=== PATIENT | male | born 1940 | race Caucasian/White ===

== ENCOUNTER 2021-07-10 03:24 | Inpatient (IN) | payer MEDICARE, BC ==
--- NOTE | 2021-07-10 04:15 | EDM.PDOC ---
<OfficerJohn - Last Filed: 07/10/21 09:19> ED HPI GENERAL MEDICAL PROBLEM - General Chief Complaint: Back Pain or Injury Stated Complaint: FELL Time Seen by Provider: 07/10/21 03:55 - Related Data Allergies Allergy/AdvReac Type Severity Reaction Status Date / Time No Known Allergies Allergy Verified 07/10/21 03:29 Home Meds: Home Meds Apixaban [Eliquis] 5 mg PO BID 07/10/21 [History] Colchicine 0.6 mg PO ASDIRECTED PRN 07/10/21 [History] Cyclobenzaprine [Flexeril] 10 mg PO ASDIRECTED PRN 07/10/21 [History] DULoxetine [Cymbalta] 60 mg PO DAILY 07/10/21 [History] Docusate Sodium 100 mg PO DAILY 07/10/21 [History] Famotidine 20 mg PO BID 07/10/21 [History] Gabapentin [Neurontin] 400 mg PO BID 07/10/21 [History] Isosorbide Dinitrate [Isordil] 20 mg PO TID 07/10/21 [History] Nitroglycerin [Nitrostat] 0.4 mg SL ASDIRECTED PRN 07/10/21 [History] allopurinoL [Zyloprim] 100 mg PO DAILY 07/10/21 [History] atorvaSTATin [Lipitor] 80 mg PO BEDTIME 07/10/21 [History] carvediloL [Carvedilol] 25 mg PO BID 07/10/21 [History] hydrALAZINE [Apresoline] 10 mg PO TID 07/10/21 [History] lisinopriL [Lisinopril] 20 mg PO DAILY 07/10/21 [History] Departure - Departure Time of Disposition: 09:20 Disposition: Admitted As Inpatient 68 Clinical Impression: Multiple rib fractures Qualifiers: Encounter type: initial encounter Fracture type: closed Laterality: right Qu alified Code(s): S22.41XA - Multiple fractures of ribs, right side, initial encounter for closed fracture - Discharge Information - Assessment/Plan Plan: Assessment Acuity = acute Site and laterality = multiple rib fractures nondisplaced Etiology = fall Manifestations = none Location of injury = Home Lab values = CT scan describes a fracture as above Plan "Discussed case with hospitalist on-call at 830 kindly agreed to come evaluate patient emergency department for admission This note was dictated using [employer] voice recognition software please call with any questions on syntax or grammar. <Malcolm Mendoza - Last Filed: 07/10/21 16:53> ED HPI GENERAL MEDICAL PROBLEM - General Source of Information: Reports: Patient, EMS, Family History Limitations: Reports: No Limitations - History of Present Illness INITIAL COMMENTS - FREE TEXT/NARRATIVE: 81-year-old male with chronic back pain, was up walking when he fell hard onto his back. It knocked his breath out and now he has significant mid back pain. He also tasted "blood in his mouth" when it happened. He was unable to get up slowly the ambulance was called, he still has significant pain in his thoracic spine. He was mildly hypoxic but does not complain of shortness of breath. No head injury or neck pain. He is on anticoagulation due to atrial fibrillation, and also has chronic kidney disease. He looks pale. His had some oxycodone from a dental procedure, he took 2 of those. Onset: Sudden Duration: Hour(s): (Within the last 2 hours) Location: Reports: Back (His most significant pain is mid back) Quality: Reports: Sharp, Stabbing Worsens with: Reports: Movement Associated Symptoms: Reports: Malaise, Other (Some pleuritic pain with breathing). Denies: Chest Pain, Fever/Chills, Shortness of Breath bilateral ribs Pain Score (Numeric/FACES): 3 middle lower back Pain Score (Numeric/FACES): 3 Past Medical History HEENT History: Reports: Cataract, Impaired Vision, Other (See Below) Other HEENT History: reading glasses Cardiovascular History: Reports: Afib, Bypass, Heart Failure, High Cholesterol, Hypertension Genitourinary History: Reports: Renal Disease, Other (See Below) Other Genitourinary History: prostate CA. Stage 4 renal disease Musculoskeletal History: Reports: Arthritis, Back Pain, Chronic Endocrine/Metabolic History: Reports: Diabetes, Type II, Obesity/BMI 30+ Hematologic History: Reports: Anticoagulation Therapy Oncologic (Cancer) History: Reports: Prostate - Infectious Disease History Infectious Disease History: Reports: Mumps - Past Surgical History HEENT Surgical History: Reports: Cataract Surgery Cardiovascular Surgical History: Reports: Coronary Artery Bypass Male Surgical History: Reports: Prostatectomy Musculoskeletal Surgical History: Reports: Arthroscopic Procedure Social & Family History - Tobacco Use Tobacco Use Status *Q: Never Tobacco User - Caffeine Use Caffeine Use: Reports: Coffee, Soda - Recreational Drug Use Recreational Drug Use: No ED ROS GENERAL - Review of Systems Review Of Systems: See Below Constitutional: Denies: Fever, Chills HEENT: Reports: Other (Somewhat hard of hearing). Denies: Vision Change Respiratory: Reports: Pleuritic Chest Pain (Posterior mid back, pain with breathing). Denies: Shortness of Breath Cardiovascular: Reports: Other (History of atrial fibrillation). Denies: Chest Pain GI/Abdominal: Denies: Abdominal Pain, Nausea, Vomiting : Reports: No Symptoms Skin: Reports: Pallor. Denies: Bruising Neurological: Denies: Headache Psychiatric: Reports: No Symptoms ED EXAM,LOWER BACK PAIN/INJURY - Physical Exam Exam: See Below Exam Limited By: No Limitations General Appearance: Alert, Mild Distress (Looks fairly uncomfortable even lying still) Eye Exam: Bilateral Eye: EOMI, PERRL Throat/Mouth: Normal Inspection Head: Atraumatic Neck: Supple, Non-Tender Respiratory/Chest: No Respiratory Distress, Lungs Clear Cardiovascular: Regular Rate, Rhythm, Extra Beats GI/Abdominal: Soft, Non-Tender Back Exam: Vertebral Tenderness (Marked vertebral tenderness in his mid thoracic spine, unable to sit up without significant pain) Extremities: Other (Symmetric trace of pitting edema in the ankles bilaterally) Neurological: Alert, No Motor/Sensory Deficits, Oriented x 3 Psychiatric: Flat Affect Skin Exam: Warm, Dry, Pallor (Looks somewhat pale) Course - Vital Signs Last Recorded V/S: Last Vital Signs Temp 97.9 F 07/10/21 14:36 Pulse 69 07/10/21 14:36 Resp 16 07/10/21 14:36 BP 140/61 07/10/21 15:42 Pulse Ox 97 07/10/21 14:36 - Orders/Labs/Meds Orders: Active Orders 24 hr Category Date Time Status Patient Status [ADT] Routine ADT 07/10/21 09:37 Active Communication Order [RC] PRN Care 07/10/21 09:37 Active Communication Order [RC] PRN Care 07/10/21 09:37 Active Diabetes Education [RC] Click to Edit Care 07/10/21 09:37 Active Intake and Output [RC] QSHIFT Care 07/10/21 09:37 Active Notify Provider Vital Signs [RC] ASDIRECTED Care 07/10/21 09:37 Active Notify Provider [RC] PRN Care 07/10/21 09:37 Active Oxygen Therapy [RC] PRN Care 07/10/21 09:37 Active Up With Assistance [RC] ASDIRECTED Care 07/10/21 09:37 Active VTE/DVT Education [RC] Per Unit Routine Care 07/10/21 09:37 Active Vital Signs [RC] Q4H Care 07/10/21 09:37 Active OT Evaluation and Treatment [CONS] Routine Cons 07/10/21 09:37 Active PT Evaluation and Treatment [CONS] Routine Cons 07/10/21 09:37 Active Consistent Carbohydrate Diet [DIET] Diet 07/10/21 Lunch Active GLUCOSE POC LAB TO COLLECT JPM [POC] QIDACANDBED Lab 07/10/21 21:00 Ordered GLUCOSE POC LAB TO COLLECT JPM [POC] QIDACANDBED Lab 07/11/21 07:30 Ordered GLUCOSE POC LAB TO COLLECT JPM [POC] QIDACANDBED Lab 07/11/21 11:30 Ordered GLUCOSE POC LAB TO COLLECT JPM [POC] QIDACANDBED Lab 07/11/21 16:30 Ordered GLUCOSE POC LAB TO COLLECT JPM [POC] QIDACANDBED Lab 07/11/21 21:00 Ordered GLUCOSE POC LAB TO COLLECT JPM [POC] QIDACANDBED Lab 07/12/21 07:30 Ordered GLUCOSE POC LAB TO COLLECT JPM [POC] QIDACANDBED Lab 07/12/21 11:30 Ordered GLUCOSE POC LAB TO COLLECT JPM [POC] QIDACANDBED Lab 07/12/21 16:30 Ordered GLUCOSE POC LAB TO COLLECT JPM [POC] QIDACANDBED Lab 07/12/21 21:00 Ordered GLUCOSE POC LAB TO COLLECT JPM [POC] QIDACANDBED Lab 07/13/21 07:30 Ordered GLUCOSE POC LAB TO COLLECT JPM [POC] QIDACANDBED Lab 07/13/21 11:30 Ordered GLUCOSE POC LAB TO COLLECT JPM [POC] QIDACANDBED Lab 07/13/21 16:30 Ordered GLUCOSE POC LAB TO COLLECT JPM [POC] QIDACANDBED Lab 07/13/21 21:00 Ordered GLUCOSE POC LAB TO COLLECT JPM [POC] QIDACANDBED Lab 07/14/21 07:30 Ordered GLUCOSE POC LAB TO COLLECT JPM [POC] QIDACANDBED Lab 07/14/21 11:30 Ordered GLUCOSE POC LAB TO COLLECT JPM [POC] QIDACANDBED Lab 07/14/21 16:30 Ordered GLUCOSE POC LAB TO COLLECT JPM [POC] QIDACANDBED Lab 07/14/21 21:00 Ordered GLUCOSE POC LAB TO COLLECT JPM [POC] QIDACANDBED Lab 07/15/21 07:30 Ordered GLUCOSE POC LAB TO COLLECT JPM [POC] QIDACANDBED Lab 07/15/21 11:30 Ordered GLUCOSE POC LAB TO COLLECT JPM [POC] QIDACANDBED Lab 07/15/21 16:30 Ordered Acetaminophen [Tylenol Extra Strength] Med 07/10/21 14:00 Active 1,000 mg PO TID Docusate Sodium/Sennosides [Senna Plus] Med 07/10/21 09:37 Active 1 tab PO BID PRN Insulin Lispro [HumaLOG] Med 07/10/21 11:00 Active See Protocol SUBCUT QIDACANDBED LORazepam [Ativan] Med 07/10/21 09:37 Active 0.5 mg IVPUSH Q4H PRN Magnesium Hydroxide [Milk of Magnesia] Med 07/10/21 09:37 Active 30 ml PO Q12H PRN Melatonin Med 07/10/21 09:37 Active 9 mg PO BEDTIME PRN Ondansetron [Zofran ODT] Med 07/10/21 09:37 Active 4 mg PO Q6H PRN Ondansetron [Zofran] Med 07/10/21 09:37 Active 4 mg IV Q6H PRN oxyCODONE Med 07/10/21 09:37 Active 5 - 10 mg PO Q4H PRN Resuscitation Status Routine Resus Stat 07/10/21 09:31 Ordered Medication Orders Acetaminophen (Acetaminophen 500 Mg Tab) 1,000 mg PO TID GUNNAR Last Admin: 07/10/21 13:35 Dose: 1,000 mg Documented by: DEVI Allopurinol (Allopurinol 100 Mg Tab) 100 mg PO DAILY GUNNAR Apixaban (Apixaban 5 Mg Tab) 5 mg PO BID GUNNAR Atorvastatin Calcium (Atorvastatin 20 Mg Tab) 80 mg PO BEDTIME GUNNAR Carvedilol (Carvedilol 12.5 Mg Tab) 25 mg PO BID [facility] Docusate Sodium (Docusate Sodium 100 Mg Cap) 100 mg PO DAILY [facility] Duloxetine HCl (Duloxetine 30 Mg Cap) 60 mg PO DAILY [facility] Famotidine (Famotidine 20 Mg Tab) 20 mg PO BEDTIME [facility] Gabapentin (Gabapentin 400 Mg Cap) 400 mg PO BID [facility] Hydralazine HCl (Hydralazine 10 Mg Tab) 10 mg PO TID [facility] Last Admin: 07/10/21 15:42 Dose: 10 mg Documented by: JOSE Insulin Human Lispro (Insulin Lispro 100 Unit/Ml 3 Ml Kwikpen) 0 unit SUBCUT QIDACANDBED [facility]; Protocol Last Admin: 07/10/21 11:39 Dose: Not Given Documented by: DEVI Isosorbide Dinitrate (Isosorbide Dinitrate 10 Mg Tab) 20 mg PO TIDAC [facility] Last Admin: 07/10/21 15:42 Dose: 20 mg Documented by: JOSE Lisinopril (Lisinopril 20 Mg Tab) 20 mg PO DAILY [facility] Lorazepam (Lorazepam 2 Mg/Ml Sdv) 0.5 mg IVPUSH Q4H PRN PRN Reason: Nausea/Vomiting Magnesium Hydroxide (Magnesium Hydroxide 400 Mg/5 Ml Susp 30 Ml Cup) 30 ml PO Q12H PRN PRN Reason: Constipation Melatonin (Melatonin 3 Mg Tab) 9 mg PO BEDTIME PRN PRN Reason: Sleep Ondansetron HCl (Ondansetron 4 Mg/2 Ml Sdv) 4 mg IV Q6H PRN PRN Reason: Nausea/Vomiting Ondansetron HCl (Ondansetron 4 Mg Tab.Dis) 4 mg PO Q6H PRN PRN Reason: Nausea able to take PO Oxycodone HCl (Oxycodone 5 Mg Tab) 5 - 10 mg PO Q4H PRN PRN Reason: Pain Last Admin: 07/10/21 13:35 Dose: 5 mg Documented by: DEVI Senna/Docusate Sodium (Docusate Sodium/Sennosides 50-8.6 Mg Tab) 1 tab PO BID PRN PRN Reason: Constipation Labs: Laboratory Tests 07/10/21 07/10/21 07/10/21 Range/Units 04:27 04:27 07:14 WBC 9.0 (4.5-11.0) K/uL RBC 2.95 L (4.30-5.90) M/uL Hgb 9.0 L (12.0-15.0) g/dL Hct 28.6 L (40.0-54.0) % MCV 97 (80-98) fL MCH 31 (27-31) pg MCHC 32 (32-36) % Plt Count 79 L (150-400) K/uL Neut % (Auto) 87.3 H (36-66) % Lymph % (Auto) 7.5 L (24-44) % Latimer % (Auto) 4.0 (2-6) % Eos % (Auto) 1.1 L (2-4) % Baso % (Auto) 0.1 (0-1) % Sodium 143 (140-148) mmol/L Potassium 5.1 (3.6-5.2) mmol/L Chloride 109 H (100-108) mmol/L Carbon Dioxide 23 (21-32) mmol/L Anion Gap 16.1 H (5.0-14.0) mmol/L BUN 81 H* (7-18) mg/dL Creatinine 3.8 H* (0.8-1.3) mg/dL Est Cr Clr Drug Dosing 14.22 mL/min Estimated GFR (MDRD) 15 L (>60) Glucose 145 H (74-106) mg/dL Calcium 8.7 (8.5-10.1) mg/dL Total Bilirubin 0.5 (0.2-1.0) mg/dL AST 16 (15-37) U/L ALT 23 (12-78) U/L Alkaline Phosphatase 50 (46-116) U/L Total Protein 6.0 L (6.4-8.2) g/dL Albumin 3.3 L (3.4-5.0) g/dL Globulin 2.7 (2.3-3.5) g/dL Albumin/Globulin Ratio 1.2 (1.2-2.2) Lipase 171 (73-393) U/L Meds: Medications Generic Name Dose Route Start Last Admin Trade Name Freq PRN Reason Stop Dose Admin Acetaminophen 1,000 mg 07/10/21 14:00 07/10/21 13:35 Acetaminophen 500 Mg Tab PO 1,000 mg TID GUNNAR Administration Allopurinol 100 mg 07/11/21 09:00 Allopurinol 100 Mg Tab PO DAILY [facility] Apixaban 5 mg 07/10/21 21:00 Apixaban 5 Mg Tab PO BID [facility] Atorvastatin Calcium 80 mg 07/10/21 21:00 Atorvastatin 20 Mg Tab PO BEDTIME [facility] Carvedilol 25 mg 07/10/21 21:00 Carvedilol 12.5 Mg Tab PO BID [facility] Docusate Sodium 100 mg 07/11/21 09:00 Docusate Sodium 100 Mg Cap PO DAILY [facility] Duloxetine HCl 60 mg 07/11/21 09:00 Duloxetine 30 Mg Cap PO DAILY [facility] Famotidine 20 mg 07/10/21 21:00 Famotidine 20 Mg Tab PO BEDTIME [facility] Gabapentin 400 mg 07/10/21 21:00 Gabapentin 400 Mg Cap PO BID [facility] Hydralazine HCl 10 mg 07/10/21 14:00 07/10/21 15:42 Hydralazine 10 Mg Tab PO 10 mg TID [facility] Administration Insulin Human Lispro 0 unit 07/10/21 11:00 07/10/21 11:39 Insulin Lispro 100 Unit/Ml 3 Ml Kwikpen SUBCUT Not Given QIDACANDBED [facility] Protocol Isosorbide Dinitrate 20 mg 07/10/21 16:00 07/10/21 15:42 Isosorbide Dinitrate 10 Mg Tab PO 20 mg TIDAC [facility] Administration Lisinopril 20 mg 07/11/21 09:00 Lisinopril 20 Mg Tab PO DAILY [facility] Lorazepam 0.5 mg 07/10/21 09:37 Lorazepam 2 Mg/Ml Sdv IVPUSH Q4H PRN Nausea/Vomiting Magnesium Hydroxide 30 ml 07/10/21 09:37 Magnesium Hydroxide 400 Mg/5 Ml Susp 30 Ml Cup PO Q12H PRN Constipation Melatonin 9 mg 07/10/21 09:37 Melatonin 3 Mg Tab PO BEDTIME PRN Sleep Ondansetron HCl 4 mg 07/10/21 09:37 Ondansetron 4 Mg/2 Ml Sdv IV Q6H PRN Nausea/Vomiting Ondansetron HCl 4 mg 07/10/21 09:37 Ondansetron 4 Mg Tab.Dis PO Q6H PRN Nausea able to take PO Oxycodone HCl 5 - 10 mg 07/10/21 09:37 07/10/21 13:35 Oxycodone 5 Mg Tab PO 5 mg Q4H PRN Administration Pain Senna/Docusate Sodium 1 tab 07/10/21 09:37 Docusate Sodium/Sennosides 50-8.6 Mg Tab PO BID PRN Constipation Discontinued Medications Generic Name Dose Route Start Last Admin Trade Name Freq PRN Reason Stop Dose Admin Hydromorphone HCl 1 mg 07/10/21 07:25 07/10/21 10:49 Hydromorphone 1 Mg/Ml Syringe IM 07/10/21 07:26 Not Given ONETIME ONE Hydromorphone HCl 0.5 mg 07/10/21 07:29 07/10/21 07:40 Hydromorphone 1 Mg/Ml Syringe IM 07/10/21 07:30 0.5 mg ONETIME ONE Administration - Re-Assessments/Exams Free Text/Narrative Re-Assessment/Exam: 07/10/21 04:15 CBC and CMP were obtained, patient will be sent to CT for chest abdomen pelvis CT scan without contrast. Suspect this patient has suffered compression fractures and possibly more serious injuries. 07/10/21 07:03 Patient remained fairly comfortable while lying still, CT report is below Preliminary Report: PRELIMINARY IMPRESSION : 1. Tiny bilateral pleural effusions and bibasilar atelectasis. No pneumothorax. Mild emphysema. 2. Acute nondisplaced fractures of the right posterior 4th-9th ribs. Old left posterior rib fractures. Chronic appearing mild anterior wedging of T11. 3. Infrarenal abdominal aortic aneurysm measuring 4.5 cm in AP dimension. No evidence of rupture. 4. No evidence of bowel obstruction. Colonic diverticulosis. No intraperitoneal free air or fluid. Negative appendix. 5. Mild nonspecific fat stranding in the central mesentery and adjacent to the pancreatic head. Correlate with lipase levels to exclude pancreatitis. Dictated by Renate Islas MD @ 07/10/2021 6:46:34 AM He would like to try to go home and cover pain with oral pain medication. He will attempt to go to the bathroom and if he is successful we may be able to get him home. 07/10/21 07:18 Patient attempted to go to the bathroom with nursing help and was unable to tolerate this without significant help, and obviously needs to be admitted for pain control. A lipase was also added at the request of the CT results. Hospitalist service was informed. Sepsis Event Note (ED) - Evaluation Sepsis Screening Result: No Definite Risk - Focused Exam Vital Signs: Vital Signs Pulse Resp BP Pulse Ox 07/10/21 07:20 70 20 155/65 H 93 L
--- NOTE | 2021-07-10 06:47 | CRLCT ---
For Patients: As a result of the 21st Century Cures Act, medical imaging exams and procedure reports are released immediately into your electronic medical record. You may view this report before your referring provider. If you have questions, please contact your health care provider. Indication: Fell, mid back pain Technique: Volumetric multidetector CT images of the chest, abdomen, and pelvis were obtained without the administration of intravenous contrast. Comparison: None available. FINDINGS: CHEST The thoracic inlet is unremarkable. The thyroid gland is within normal limits. The thoracic aorta is non aneurysmal with moderate scattered atherosclerotic calcifications. There is median sternotomy wires. Postoperative changes of the chest status post coronary artery bypass grafting are appreciated. There are enlarged, reactive appearing mediastinal and hilar lymph nodes. There is no axillary adenopathy. There is bibasilar atelectasis and parenchymal scarring without evidence of definite pneumothorax or dense consolidation. Somewhat nodular thickening of the right major fissure is appreciated. There is additional somewhat ground-glass nodule versus air trapping in the anterior left upper lobe. There is mild centrilobular emphysematous changes predominantly of the upper lobes. There are multiple displaced fractures of the right 4th, 5th, 6th, 7th, 8th, 9th ribs. There are old left-sided rib fractures with additional nondisplaced fractures of the posterior 5th, 6th, 7th ribs. The thoracic vertebral body heights are grossly maintained with minimal endplate Schmorl`s defects and diffuse flowing anterior osteophytosis. There is no significant spondylolisthesis or definite displaced fracture. Somewhat heterogeneous marrow attenuation is appreciated with suggestion of likely hemangioma within the T4 and T8 levels. ABDOMEN AND PELVIS The liver is normal in attenuation and size. The portal vein is patent. The spleen is normal in attenuation and size. The gallbladder is unremarkable without radiopaque calculus. There is no intrahepatic or common ductal dilatation. The stomach and duodenum are grossly unremarkable. There is mild to moderate pancreatic atrophy with minimal nonspecific peripancreatic change. Cystic changes of the kidneys are appreciated. The adrenal glands are unremarkable. There is a moderate diffuse amount of intracolonic stool. There is marked distal colonic diverticulosis. No obvious colonic inflammatory changes are appreciated. The appendix is unremarkable without significant inflammatory change. The abdominal aorta is mildly aneurysmal with moderate atherosclerotic plaque measuring up to 4.5 x 4.2 centimeters.. Postoperative changes of the central pelvis status post prostatectomy are again seen. Vascular conduit material is appreciated in the inguinal soft tissues commensurate with a fem-fem bypass. There is nonspecific central mesenteric stranding which can be seen in the setting of mesenteric adenitis. Otherwise there is no evidence of pathologic lymph node in the retroperitoneum or pelvic sidewalls. Postoperative changes of the anterior abdominal wall are appreciated with a small fat containing umbilical hernia. There is no free air or free fluid. Degenerative changes of the bilateral hips are appreciated. Additional degeneration of the sacroiliac joints is seen. The proximal femora are well seated in the acetabula. The lumbar vertebral body heights are grossly maintained with minimal endplate Schmorl`s defects. There is no evidence of displaced fracture or dislocation. There is moderate facet arthrosis. Impression: 1. Demonstration of displaced fractures of the right 4th through 9th ribs as well as nondisplaced acute fractures of the posterior left 5th through 7th ribs. Additional old left-sided rib fractures are appreciated. 2. Demonstration of infrarenal abdominal aortic aneurysm measuring 4.5 centimeters in greatest dimension. Postoperative changes of the proximal femoral arteries status post fem-fem bypass. 3. Minimal basilar pleural effusions with adjacent compressive atelectasis and/or somewhat thickened appearance of the right greater than left major fissures. Mild to moderate emphysematous changes of the upper lobes. Demonstration of a somewhat ground-glass nodule in the anterior left lung apex on series 2, image 44 measuring 1.6 centimeters. Consider further evaluation with follow-up exam in 3-6 months time for reassessment if there remains persistent concern. 4. Mild nonspecific central mesenteric soft tissue stranding which can be seen in the setting of mesenteric adenitis. There is mild adjacent inflammatory change adjacent to the pancreas which can be seen in the setting of pancreatitis. Please note that all CT scans at this facility use dose modulation, iterative reconstruction, and/or weight-based dosing when appropriate to reduce radiation dose to as low as reasonably achievable. Dictated by Collins Sidhu MD @ 07/10/2021 1:03:46 PM (Electronically Signed)
[2021-07-10] MEDS ORDERED: HYDROmorphone 1 MG/ML Syringe IM ONE ×2 (07:25→07:29)
--- NOTE | 2021-07-10 09:35 | PCM.HP.2 ---
H&P History of Present Illness - General Date of Service: 07/10/21 Admit Problem/Dx: Admission Diagnosis/Problem Admission Diagnosis/Problem Fracture of rib of right side Source of Information: Patient, Family, Provider - History of Present Illness Initial Comments - Free Text/Narative: CC: my ribs were hurting pretty bad HPI: Malcolm presents to the emergency room today with right-sided chest pain. He reports he was going to the bathroom in the middle of the night and tripped over a rug. He fell down striking the right side of his chest. He had immediate sharp and severe pain of the right chest. His spouse did have some pain pills from a previous surgery and he tried a couple of these but did not have significant relief. Moving around and especially trying to sit up or stand up increases the pain. Laying still does help. He has also received some intramuscular pain medications in the emergency room with improvement. He had been feeling well prior to the fall and has not noticed anything out of the ordinary. His bowels have been moving regularly. He had not had shortness of b reath prior to the episode. Work-up in the emergency room revealed fractures of the posterior right ribs from 4 through 9. He has hypoxic and requiring supplemental oxygen because of the fractures as well as resulting pain. He has a great deal of difficulty changing positions in bed and getting to a standing position and is not safe for outpatient management at this time. He will be admitted for management of his rib fractures resulting in hypoxic respiratory failure. bilateral ribs Pain Score (Numeric/FACES): 3 middle lower back Pain Score (Numeric/FACES): 3 - Related Data Allergies/Adverse Reactions: Allergies Allergy/AdvReac Type Severity Reaction Status Date / Time No Known Allergies Allergy Verified 07/10/21 03:29 Home Medications: Home Meds Apixaban [Eliquis] 5 mg PO BID 07/10/21 [History] Colchicine 0.6 mg PO ASDIRECTED PRN 07/10/21 [History] Cyclobenzaprine [Flexeril] 10 mg PO ASDIRECTED PRN 07/10/21 [History] DULoxetine [Cymbalta] 60 mg PO DAILY 07/10/21 [History] Docusate Sodium 100 mg PO DAILY 07/10/21 [History] Famotidine 20 mg PO BID 07/10/21 [History] Gabapentin [Neurontin] 400 mg PO BID 07/10/21 [History] Isosorbide Dinitrate [Isordil] 20 mg PO TID 07/10/21 [History] Nitroglycerin [Nitrostat] 0.4 mg SL ASDIRECTED PRN 07/10/21 [History] allopurinoL [Zyloprim] 100 mg PO DAILY 07/10/21 [History] atorvaSTATin [Lipitor] 80 mg PO BEDTIME 07/10/21 [History] carvediloL [Carvedilol] 25 mg PO BID 07/10/21 [History] hydrALAZINE [Apresoline] 10 mg PO TID 07/10/21 [History] lisinopriL [Lisinopril] 20 mg PO DAILY 07/10/21 [History] Past Medical History HEENT History: Reports: Cataract, Impaired Vision, Other (See Below) Other HEENT History: reading glasses Cardiovascular History: Reports: Afib, Bypass, Heart Failure, High Cholesterol, Hypertension Genitourinary History: Reports: Renal Disease, Other (See Below) Other Genitourinary History: prostate CA. Stage 4 renal disease Musculoskeletal History: Reports: Arthritis, Back Pain, Chronic Endocrine/Metabolic History: Reports: Diabetes, Type II, Obesity/BMI 30+ Hematologic History: Reports: Anticoagulation Therapy Oncologic (Cancer) History: Reports: Prostate - Infectious Disease History Infectious Disease History: Reports: Mumps - Past Surgical History HEENT Surgical History: Reports: Cataract Surgery Cardiovascular Surgical History: Reports: Coronary Artery Bypass Male Surgical History: Reports: Prostatectomy Musculoskeletal Surgical History: Reports: Arthroscopic Procedure Social & Family History - Family History Cardiac: Denies: CAD - Tobacco Use Tobacco Use Status *Q: Never Tobacco User - Caffeine Use Caffeine Use: Reports: Coffee, Soda - Recreational Drug Use Recreational Drug Use: No H&P Review of Systems - Review of Systems: Review Of Systems: See Below Free Text/Narrative: A complete 12 point review of systems was obtained. Pertinent positives and negatives are noted in the history of present illness. All other systems were reviewed and were negative except as noted. Exam - Exam Exam: See Below - Vital Signs Vital Signs: Last Vital Signs Temp 36.4 C 07/10/21 03:34 Pulse 70 07/10/21 07:20 Resp 20 07/10/21 07:20 BP 155/65 H 10/04/21 07:20 Pulse Ox 93 L 07/10/21 07:20 Weight: 108.862 kg - Exam Quality Assessment: Supplemental Oxygen General: Alert, Oriented, Cooperative, Sedated. No: Mild Distress HEENT: Conjunctiva Clear, Mucosa Moist & [place]. No: Scleral Icterus Neck: Supple, Trachea Midline Lungs: Clear to Auscultation, Normal Respiratory Effort, Decreased Breath Sounds (Mild right lung base) Cardiovascular: Regular Rate, Irregular Rhythm. No: Systolic Murmur GI/Abdominal Exam: Normal Bowel Sounds, Soft, Non-Tender, No Distention Extremities: No Pedal Edema. No: Increased Warmth Peripheral Pulses: 2+: Dorsalis Pedis (L), Dorsalis Pedis (R) Skin: Warm, Dry Neuro Extensive - Mental Status: Alert, Oriented x3, Slow Response to Commands (Very sleepy) Neuro Extensive - Motor, Sensory, Reflexes: No: Dysarthria, Abnormal Motor, Tremor Psychiatric: Alert, Normal Affect - Patient Data Lab Results Last 24 hrs: Laboratory Results - last 24 hr 07/10/21 07/10/21 07/10/21 Range/Units 04:27 04:27 07:14 WBC 9.0 (4.5-11.0) K/uL RBC 2.95 L (4.30-5.90) M/uL Hgb 9.0 L (12.0-15.0) g/dL Hct 28.6 L (40.0-54.0) % MCV 97 (80-98) fL MCH 31 (27-31) pg MCHC 32 (32-36) % Plt Count 79 L (150-400) K/uL Neut % (Auto) 87.3 H (36-66) % Lymph % (Auto) 7.5 L (24-44) % [place] % (Auto) 4.0 (2-6) % Eos % (Auto) 1.1 L (2-4) % Baso % (Auto) 0.1 (0-1) % Sodium 143 (140-148) mmol/L Potassium 5.1 (3.6-5.2) mmol/L Chloride 109 H (100-108) mmol/L Carbon Dioxide 23 (21-32) mmol/L Anion Gap 16.1 H (5.0-14.0) mmol/L BUN 81 H* (7-18) mg/dL Creatinine 3.8 H* (0.8-1.3) mg/dL Est Cr Clr Drug Dosing 14.22 mL/min Estimated GFR (MDRD) 15 L (>60) Glucose 145 H (74-106) mg/dL Calcium 8.7 (8.5-10.1) mg/dL Total Bilirubin 0.5 (0.2-1.0) mg/dL AST 16 (15-37) U/L ALT 23 (12-78) U/L Alkaline Phosphatase 50 (46-116) U/L Total Protein 6.0 L (6.4-8.2) g/dL Albumin 3.3 L (3.4-5.0) g/dL Globulin 2.7 (2.3-3.5) g/dL Albumin/Globulin Ratio 1.2 (1.2-2.2) Lipase 171 (73-393) U/L Result Diagrams: 07/10/21 04:27 07/10/21 04:27 Imaging Impressions Last 24 hrs: CT scan of the chest, abdomen and pelvis-these images were personally reviewed- there is evidence for fractures of posterior ribs on the right side from ribs 4 through 9. No pneumothorax or hemothorax. No evidence for pneumonia. Sepsis Event Note - Evaluation Sepsis Screening Result: No Definite Risk - Focused Exam Vital Signs: Vital Signs Temp Pulse Resp BP Pulse Ox 07/10/21 07:20 70 20 155/65 H 93 L 07/10/21 03:34 36.4 C 67 14 151/52 H 99 07/10/21 03:29 36.4 C 67 14 151/52 H 99 *Q Meaningful Use (ADM) - VTE Risk Assess *Q Each Risk Factor Represents 1 Point: Obesity ( BMI > 25 kg/m2), Serious lung disease including pneumonia Total Score 1 Point Risk Factors: 2 Each Risk Factor Represents 2 Points: None Total Score 2 Point Risk Factors: 0 Each Risk Factor Represents 3 Points: Age 75 Years or Greater Total Score 3 Point Risk Factors: 3 Each Risk Factor Represents 5 Points: None Total Score 5 Point Risk Factors: 0 Venous Thromboembolism Risk Factor Score *Q: 5 - Problem List (1) Multiple rib fractures SNOMED Code(s): 2329206 ICD Code: S22.49XA - MULTIPLE FRACTURES OF RIBS, UNSP SIDE, INIT FOR CLOS FX Status: Acute Current Visit: Yes Qualifiers: Encounter type: initial encounter Fracture type: closed Laterality: right Qualified Code(s): S22.41XA - Multiple fractures of ribs, right side, initial encounter for closed fracture (2) Acute respiratory failure with hypoxia SNOMED Code(s): 12137253, 776423009 ICD Code: J96.01 - ACUTE RESPIRATORY FAILURE WITH HYPOXIA Status: Acute Current Visit: Yes (3) CKD (chronic kidney disease), stage IV SNOMED Code(s): 990684531 ICD Code: N18.4 - CHRONIC KIDNEY DISEASE, STAGE 4 (SEVERE) Status: Chronic Current Visit: Yes (4) DM II (diabetes mellitus, type II), controlled SNOMED Code(s): 82159695, 280492840 ICD Code: E11.9 - TYPE 2 DIABETES MELLITUS WITHOUT COMPLICATIONS Status: Chronic Current Visit: Yes Qualifiers: Diabetes mellitus title lawyer insulin use: without title lawyer use Diabetes mellitus complication status: with neurologic complications Diabetes mellitus complication detail: with polyneuropathy Qualified Code(s): E11.42 - Type 2 diabetes mellitus with diabetic polyneuropathy (5) Atrial fibrillation SNOMED Code(s): 63564133 ICD Code: I48.91 - UNSPECIFIED ATRIAL FIBRILLATION Status: Chronic Current Visit: Yes Qualifiers: Atrial fibrillation type: paroxysmal Qualified Code(s): I48.0 - Paroxysmal atrial fibrillation Problem List Initiated/Reviewed/Updated: Yes Orders Last 24hrs: Active Orders 24 hr Category Date Time Status Patient Status Manage Transfer [TRANSFER] Routine ADT 07/10/21 09:30 Ordered Resuscitation Status Routine Resus Stat 07/10/21 09:31 Ordered Assessment/Plan Comment:: ASSESSMENT AND PLAN - Multiple right-sided rib fractures-complicated by acute respiratory failure with hypoxia secondary to pain. No evidence for pneumothorax at this time. He had a great deal of difficulty trying to mobilize. He would benefit from admission for pain control, physical therapy and supplemental oxygen therapy. -Pain control with scheduled acetaminophen and as needed oxycodone -Consider low-dose muscle relaxer -Physical therapy -Supplement oxygen as needed, wean as able Stage IV chronic kidney disease-creatinine stable. Type 2 diabetes mellitus-controlled with diet at this time. He is not currently on any antidiabetic medication. -Low-dose sliding scale insulin Paroxysmal atrial fibrillation-chronically anticoagulated. -Continue rate control and anticoagulation Maintenance issues - -DVT prophylaxis-apixaban -GI prophylaxis-H2 darline -Nutrition-diabetic diet -Byrnes catheter-not indicated CODE STATUS -full code Admission justification -this patient will be admitted for inpatient services and is medically appropriate meeting medical necessity for inpatient admission as outlined in my documentation. I reasonably expect the patient will require inpatient services that span a period time over 2 midnights. I reasonably expect this patient to be discharged or transferred within 96 hours after admission to the [facility]. Disposition -I anticipate discharge home after the hospital stay Primary care physician -Dr. Jewel Brush M.D. - Mortality Measure Prognosis:: Good
[2021-07-10] MEDS ORDERED: Ondansetron 4 MG Tab.DIS PO PRN (09:37)
[2021-07-10] MEDS ORDERED: Magnesium Hydroxide 400 MG/5 ML Susp 30 ML Cup PO PRN (09:37)
[2021-07-10] MEDS ORDERED: Ondansetron 4 MG/2 ML SDV IV PRN (09:37)
[2021-07-10] MEDS ORDERED: LORazepam 2 MG/ML SDV IVPUSH PRN (09:37)
[2021-07-10] MEDS ORDERED: Melatonin 3 MG Tab PO PRN (09:37)
[2021-07-10] MEDS: Insulin Lispro 100 Unit/ML 3 ML KwikPen SUBCUT SCH ×3 (11:39→21:22)
[2021-07-10] MEDS: Acetaminophen 500 MG Tab PO SCH ×2 (13:35→21:25)
[2021-07-10] MEDS: oxyCODONE 5 MG Tab PO PRN ×2 (13:35→19:43)
[2021-07-10] MEDS: Isosorbide Dinitrate 10 MG Tab PO SCH (15:42)
[2021-07-10] MEDS: hydrALAZINE 10 MG Tab PO SCH ×2 (15:42→21:25)
[2021-07-10] MEDS: Famotidine 20 MG Tab PO SCH (21:25)
[2021-07-10] MEDS: atorvaSTATin 20 MG Tab PO SCH (21:25)
[2021-07-10] MEDS: Apixaban 5 MG Tab PO SCH (21:25)
[2021-07-10] MEDS: Gabapentin 400 MG Cap PO SCH (21:25)
[2021-07-10] MEDS: Carvedilol 12.5 MG Tab PO SCH (21:28)
[2021-07-11] MEDS: oxyCODONE 5 MG Tab PO PRN ×3 (07:43→17:29)
[2021-07-11] MEDS: Isosorbide Dinitrate 10 MG Tab PO SCH ×3 (07:44→17:30)
[2021-07-11] MEDS: Acetaminophen 500 MG Tab PO SCH ×3 (08:00→20:19)
[2021-07-11] MEDS: Carvedilol 12.5 MG Tab PO SCH ×2 (08:56→20:20)
[2021-07-11] MEDS: Apixaban 5 MG Tab PO SCH ×2 (08:56→20:20)
[2021-07-11] MEDS: Gabapentin 400 MG Cap PO SCH ×2 (08:56→20:20)
[2021-07-11] MEDS: Allopurinol 100 MG Tab PO SCH (08:56)
[2021-07-11] MEDS: DULoxetine 30 MG Cap PO SCH (08:57)
[2021-07-11] MEDS: hydrALAZINE 10 MG Tab PO SCH ×3 (08:57→20:19)
[2021-07-11] MEDS: Docusate Sodium 100 MG Cap PO SCH (08:57)
[2021-07-11] MEDS: Insulin Lispro 100 Unit/ML 3 ML KwikPen SUBCUT SCH ×4 (08:58→21:23)
[2021-07-11] MEDS ORDERED: Lisinopril 20 MG Tab PO SCH (09:00)
--- NOTE | 2021-07-11 14:41 | PCM.PN ---
- General Info Date of Service: 07/11/21 Subjective Update: No acute events overnight. Patient did require supplemental oxygen overnight but is off oxygen this morning. Still having moderate right-sided chest pain especially with movement but this is better than yesterday. Much more alert and interactive than yesterday. Appetite is normal. No complaints of shortness of breath at rest. He has been intermittently using his incentive spirometer. Able to walk to the bathroom and back. - Patient Data Vitals - Most Recent: Last Vital Signs Temp 35.9 C L 07/11/21 10:59 Pulse 59 L 07/11/21 10:59 Resp 18 07/11/21 10:59 BP 105/36 L 07/11/21 12:18 Pulse Ox 90 L 07/11/21 10:59 Weight - Most Recent: 102.058 kg I&O - Last 24 Hours: Intake & Output 07/10/21 07/11/21 07/11/21 22:59 06:59 14:59 Intake Total 355 300 200 Balance 355 300 200 Lab Results Last 24 Hours: Laboratory Results - last 24 hr 07/10/21 07/10/21 07/11/21 Range/Units 16:49 20:57 07:33 POC Glucose 125 H 127 H 117 H (74-106) mg/dL 07/11/21 Range/Units 11:23 POC Glucose 131 H (74-106) mg/dL Med Orders - Current: Current Medications Acetaminophen (Acetaminophen 500 Mg Tab) 1,000 mg PO TID [facility] Last Admin: 07/11/21 08:00 Dose: 1,000 mg Documented by: Allopurinol (Allopurinol 100 Mg Tab) 100 mg PO DAILY [facility] Last Admin: 07/11/21 08:56 Dose: 100 mg Documented by: Apixaban (Apixaban 5 Mg Tab) 5 mg PO BID [facility] Last Admin: 07/11/21 08:56 Dose: 5 mg Documented by: Atorvastatin Calcium (Atorvastatin 20 Mg Tab) 80 mg PO BEDTIME [facility] Last Admin: 07/10/21 21:25 Dose: 80 mg Documented by: Carvedilol (Carvedilol 12.5 Mg Tab) 25 mg PO BID [facility] Last Admin: 07/11/21 08:56 Dose: 25 mg Documented by: Docusate Sodium (Docusate Sodium 100 Mg Cap) 100 mg PO DAILY [facility] Last Admin: 07/11/21 08:57 Dose: 100 mg Documented by: Duloxetine HCl (Duloxetine 30 Mg Cap) 60 mg PO DAILY [facility] Last Admin: 07/11/21 08:57 Dose: 60 mg Documented by: Famotidine (Famotidine 20 Mg Tab) 20 mg PO BEDTIME [facility] Last Admin: 07/10/21 21:25 Dose: 20 mg Documented by: Gabapentin (Gabapentin 400 Mg Cap) 400 mg PO BID [facility] Last Admin: 07/11/21 08:56 Dose: 400 mg Documented by: Hydralazine HCl (Hydralazine 10 Mg Tab) 10 mg PO TID [facility] Last Admin: 07/11/21 08:57 Dose: 10 mg Documented by: Insulin Human Lispro (Insulin Lispro 100 Unit/Ml 3 Ml Kwikpen) 0 unit SUBCUT QIDACANDBED [facility]; Protocol Last Admin: 07/11/21 14:12 Dose: Not Given Documented by: Isosorbide Dinitrate (Isosorbide Dinitrate 10 Mg Tab) 20 mg PO TIDAC [facility] Last Admin: 07/11/21 12:18 Dose: 20 mg Documented by: Lisinopril (Lisinopril 20 Mg Tab) 20 mg PO DAILY [facility] Last Admin: 07/11/21 08:57 Dose: 20 mg Documented by: Lorazepam (Lorazepam 2 Mg/Ml Sdv) 0.5 mg IVPUSH Q4H PRN PRN Reason: Nausea/Vomiting Magnesium Hydroxide (Magnesium Hydroxide 400 Mg/5 Ml Susp 30 Ml Cup) 30 ml PO Q12H PRN PRN Reason: Constipation Melatonin (Melatonin 3 Mg Tab) 9 mg PO BEDTIME PRN PRN Reason: Sleep Ondansetron HCl (Ondansetron 4 Mg/2 Ml Sdv) 4 mg IV Q6H PRN PRN Reason: Nausea/Vomiting Ondansetron HCl (Ondansetron 4 Mg Tab.Dis) 4 mg PO Q6H PRN PRN Reason: Nausea able to take PO Oxycodone HCl (Oxycodone 5 Mg Tab) 5 - 10 mg PO Q4H PRN PRN Reason: Pain Last Admin: 07/11/21 12:18 Dose: 5 mg Documented by: Senna/Docusate Sodium (Docusate Sodium/Sennosides 50-8.6 Mg Tab) 1 tab PO BID PRN PRN Reason: Constipation Discontinued Medications Hydromorphone HCl (Hydromorphone 1 Mg/Ml Syringe) 1 mg IM ONETIME ONE Stop: 07/10/21 07:26 Last Admin: 07/10/21 10:49 Dose: Not Given Documented by: Hydromorphone HCl (Hydromorphone 1 Mg/Ml Syringe) 0.5 mg IM ONETIME ONE Stop: 07/10/21 07:30 Last Admin: 07/10/21 07:40 Dose: 0.5 mg Documented by: - Exam Quality Assessment: No: Supplemental Oxygen General: Alert, Oriented, Cooperative, No Acute Distress Lungs: Normal Respiratory Effort GI/Abdominal Exam: Soft, No Distention Extremities: No Pedal Edema Psy/Mental Status: Alert, Normal Affect - Patient Data Lab Results Last 24 hrs: Laboratory Results - last 24 hr 07/10/21 07/10/21 07/11/21 Range/Units 16:49 20:57 07:33 POC Glucose 125 H 127 H 117 H (74-106) mg/dL 07/11/21 Range/Units 11:23 POC Glucose 131 H (74-106) mg/dL Result Diagrams: 07/10/21 04:27 07/10/21 04:27 Sepsis Event Note - Evaluation Sepsis Screening Result: No Definite Risk - Focused Exam Vital Signs: Vital Signs Temp Pulse Pulse Resp BP BP Pulse Ox 07/11/21 12:18 105/36 L 07/11/21 10:59 35.9 C L 59 L 18 105/36 L 90 L 07/11/21 08:57 138/49 L 07/11/21 08:56 60 138/49 L 07/11/21 07:48 35.4 C L 57 L 18 138/49 L 91 L 07/11/21 07:44 138/49 L 07/11/21 02:56 36.4 C 72 16 116/47 L 93 L - Problem List & Annotations (1) Multiple rib fractures SNOMED Code(s): 2665375 Code(s): S22.49XA - MULTIPLE FRACTURES OF RIBS, UNSP SIDE, INIT FOR CLOS FX Status: Acute Current Visit: Yes Qualifiers: Encounter type: initial encounter Fracture type: closed Laterality: right Qualified Code(s): S22.41XA - Multiple fractures of ribs, right side, initial encounter for closed fracture (2) Acute respiratory failure with hypoxia SNOMED Code(s): 77385768, 506833095 Code(s): J96.01 - ACUTE RESPIRATORY FAILURE WITH HYPOXIA Status: Acute Current Visit: Yes (3) CKD (chronic kidney disease), stage IV SNOMED Code(s): 588436745 Code(s): N18.4 - CHRONIC KIDNEY DISEASE, STAGE 4 (SEVERE) Status: Chronic Current Visit: Yes (4) DM II (diabetes mellitus, type II), controlled SNOMED Code(s): 09554027, 047806774 Code(s): E11.9 - TYPE 2 DIABETES MELLITUS WITHOUT COMPLICATIONS Status: Chronic Current Visit: Yes Qualifiers: Diabetes mellitus terminal makeup operator insulin use: without terminal makeup operator use Diabetes mellitus complication status: with neurologic complications Diabetes mellitus complication detail: with polyneuropathy Qualified Code(s): E11.42 - Type 2 diabetes mellitus with diabetic polyneuropathy (5) Atrial fibrillation SNOMED Code(s): 51999335 Code(s): I48.91 - UNSPECIFIED ATRIAL FIBRILLATION Status: Chronic Current Visit: Yes Qualifiers: Atrial fibrillation type: paroxysmal Qualified Code(s): I48.0 - Paroxysmal atrial fibrillation - Problem List Review Problem List Initiated/Reviewed/Updated: Yes - My Orders Last 24 Hours: My Active Orders 07/10/21 14:00 Acetaminophen [Tylenol Extra Strength] 1,000 mg PO TID hydrALAZINE [Apresoline] 10 mg PO TID 07/10/21 16:00 Isosorbide Dinitrate [Isordil] 20 mg PO TIDAC 07/10/21 21:00 Apixaban [Eliquis] 5 mg PO BID Famotidine [Pepcid] 20 mg PO BEDTIME Gabapentin [Neurontin] 400 mg PO BID atorvaSTATin [Lipitor] 80 mg PO BEDTIME carvediloL [Coreg] 25 mg PO BID 07/11/21 09:00 DULoxetine [Cymbalta] 60 mg PO DAILY Docusate Sodium [Colace] 100 mg PO DAILY allopurinoL [Zyloprim] 100 mg PO DAILY lisinopriL [Prinivil] 20 mg PO DAILY 07/11/21 16:30 GLUCOSE POC LAB TO COLLECT JPM [POC] QIDACANDBED 07/11/21 21:00 GLUCOSE POC LAB TO COLLECT JPM [POC] QIDACANDBED 07/12/21 05:00 BASIC METABOLIC PANEL,BMP [CHEM] Timed 07/12/21 07:30 GLUCOSE POC LAB TO COLLECT JPM [POC] QIDACANDBED 07/12/21 11:30 GLUCOSE POC LAB TO COLLECT JPM [POC] QIDACANDBED 07/12/21 16:30 GLUCOSE POC LAB TO COLLECT JPM [POC] QIDACANDBED 07/12/21 21:00 GLUCOSE POC LAB TO COLLECT JPM [POC] QIDACANDBED 07/13/21 07:30 GLUCOSE POC LAB TO COLLECT JPM [POC] QIDACANDBED 07/13/21 11:30 GLUCOSE POC LAB TO COLLECT JPM [POC] QIDACANDBED 07/13/21 16:30 GLUCOSE POC LAB TO COLLECT JPM [POC] QIDACANDBED 07/13/21 21:00 GLUCOSE POC LAB TO COLLECT JPM [POC] QIDACANDBED 07/14/21 07:30 GLUCOSE POC LAB TO COLLECT JPM [POC] QIDACANDBED 07/14/21 11:30 GLUCOSE POC LAB TO COLLECT JPM [POC] QIDACANDBED 07/14/21 16:30 GLUCOSE POC LAB TO COLLECT JPM [POC] QIDACANDBED 07/14/21 21:00 GLUCOSE POC LAB TO COLLECT JPM [POC] QIDACANDBED 07/15/21 07:30 GLUCOSE POC LAB TO COLLECT JPM [POC] QIDACANDBED 07/15/21 11:30 GLUCOSE POC LAB TO COLLECT JPM [POC] QIDACANDBED 07/15/21 16:30 GLUCOSE POC LAB TO COLLECT JPM [POC] QIDACANDBED - Plan Plan:: ASSESSMENT AND PLAN - Multiple right-sided rib fractures-complicated by acute respiratory failure with hypoxia secondary to pain. Pain has improved since admission. He did require oxygen overnight but is off as of earlier this morning. He does still get hypoxic with activity. He is interested in some more physical therapy. -Pain control with scheduled acetaminophen and as needed oxycodone -Consider low-dose muscle relaxer -Physical therapy -Supplement oxygen as needed, wean as able Stage IV chronic kidney disease-creatinine stable. Type 2 diabetes mellitus-controlled with diet at this time. He is not currently on any antidiabetic medication. -Low-dose sliding scale insulin Paroxysmal atrial fibrillation-chronically anticoagulated. -Continue rate control and anticoagulation Maintenance issues - -DVT prophylaxis-apixaban -GI prophylaxis-H2 darline -Nutrition-diabetic diet Disposition -I anticipate discharge home after the hospital stay, hopefully tomorrow if we have additional improvement overnight Primary care physician -Dr. Jewel Brush M.D.
[2021-07-11] MEDS: atorvaSTATin 20 MG Tab PO SCH (20:20)
[2021-07-11] MEDS: Famotidine 20 MG Tab PO SCH (20:21)
[2021-07-12] MEDS: Insulin Lispro 100 Unit/ML 3 ML KwikPen SUBCUT SCH ×2 (07:30→11:29)
[2021-07-12] MEDS: Acetaminophen 500 MG Tab PO SCH ×3 (08:05→20:52)
[2021-07-12] MEDS: Isosorbide Dinitrate 10 MG Tab PO SCH (08:07)
[2021-07-12] MEDS: Docusate Sodium 100 MG Cap PO SCH (08:45)
[2021-07-12] MEDS: Carvedilol 12.5 MG Tab PO SCH ×2 (08:46→20:51)
[2021-07-12] MEDS: Gabapentin 400 MG Cap PO SCH ×2 (08:47→20:50)
[2021-07-12] MEDS: Apixaban 5 MG Tab PO SCH ×2 (08:47→20:51)
[2021-07-12] MEDS: DULoxetine 30 MG Cap PO SCH (08:47)
[2021-07-12] MEDS: Allopurinol 100 MG Tab PO SCH (08:48)
[2021-07-12] MEDS: oxyCODONE 5 MG Tab PO PRN (09:24)
[2021-07-12] MEDS ORDERED: oxyCODONE 5 MG Tab PO PRN (09:39)
--- NOTE | 2021-07-12 09:40 | PCM.PN ---
- General Info Date of Service: 07/12/21 Subjective Update: There were no acute events overnight. Patient slept well. Pain is fairly well controlled. He describes mild pain at rest and moderate pain with activity. This is a small improvement from yesterday. He does not feel short of breath. He did require supplemental oxygen for a while overnight. Appetite has been good. No bowel movement during the hospital stay. Working with physical therapy. Functional Status: Reports: Pain Controlled, Tolerating Diet - Review of Systems Cardiovascular: Reports: Chest Pain - Patient Data Vitals - Most Recent: Last Vital Signs Temp 36.1 C 07/12/21 07:00 Pulse 58 L 07/12/21 08:46 Resp 16 07/12/21 07:00 BP 131/44 L 07/12/21 08:46 Pulse Ox 93 L 07/12/21 07:00 Weight - Most Recent: 102.058 kg I&O - Last 24 Hours: Intake & Output 07/11/21 07/12/21 07/12/21 22:59 06:59 14:59 Intake Total 240 990 Balance 240 990 Lab Results Last 24 Hours: Laboratory Results - last 24 hr 07/11/21 07/11/21 07/11/21 Range/Units 11:23 16:24 20:52 Sodium (140-148) mmol/L Potassium (3.6-5.2) mmol/L Chloride (100-108) mmol/L Carbon Dioxide (21-32) mmol/L Anion Gap (5.0-14.0) mmol/L BUN (7-18) mg/dL Creatinine (0.8-1.3) mg/dL Est Cr Clr Drug Dosing mL/min Estimated GFR (MDRD) (>60) Glucose (74-106) mg/dL POC Glucose 131 H 120 H 157 H (74-106) mg/dL Calcium (8.5-10.1) mg/dL 07/12/21 Range/Units 04:23 Sodium 144 (140-148) mmol/L Potassium 5.4 H (3.6-5.2) mmol/L Chloride 111 H (100-108) mmol/L Carbon Dioxide 23 (21-32) mmol/L Anion Gap 15.4 H (5.0-14.0) mmol/L BUN 86 H* (7-18) mg/dL Creatinine 4.0 H* (0.8-1.3) mg/dL Est Cr Clr Drug Dosing 13.51 mL/min Estimated GFR (MDRD) 15 L (>60) Glucose 124 H (74-106) mg/dL POC Glucose (74-106) mg/dL Calcium 8.7 (8.5-10.1) mg/dL Med Orders - Current: Current Medications Acetaminophen (Acetaminophen 500 Mg Tab) 1,000 mg PO TID [facility] Last Admin: 07/12/21 08:05 Dose: 1,000 mg Documented by: Allopurinol (Allopurinol 100 Mg Tab) 100 mg PO DAILY [facility] Last Admin: 07/12/21 08:48 Dose: 100 mg Documented by: Apixaban (Apixaban 5 Mg Tab) 5 mg PO BID [facility] Last Admin: 07/12/21 08:47 Dose: 5 mg Documented by: Atorvastatin Calcium (Atorvastatin 20 Mg Tab) 80 mg PO BEDTIME [facility] Last Admin: 07/11/21 20:20 Dose: 80 mg Documented by: Carvedilol (Carvedilol 12.5 Mg Tab) 25 mg PO BID [facility] Last Admin: 07/12/21 08:46 Dose: 25 mg Documented by: Docusate Sodium (Docusate Sodium 100 Mg Cap) 100 mg PO DAILY [facility] Last Admin: 07/12/21 08:45 Dose: 100 mg Documented by: Duloxetine HCl (Duloxetine 30 Mg Cap) 60 mg PO DAILY [facility] Last Admin: 07/12/21 08:47 Dose: 60 mg Documented by: Famotidine (Famotidine 20 Mg Tab) 20 mg PO BEDTIME [facility] Last Admin: 07/11/21 20:21 Dose: 20 mg Documented by: Gabapentin (Gabapentin 400 Mg Cap) 400 mg PO BID [facility] Last Admin: 07/12/21 08:47 Dose: 400 mg Documented by: Hydralazine HCl (Hydralazine 10 Mg Tab) 10 mg PO TID [facility] Last Admin: 07/11/21 20:19 Dose: 10 mg Documented by: Insulin Human Lispro (Insulin Lispro 100 Unit/Ml 3 Ml Kwikpen) 0 unit SUBCUT QIDACANDBED [facility]; Protocol Last Admin: 07/12/21 07:30 Dose: Not Given Documented by: Isosorbide Dinitrate (Isosorbide Dinitrate 10 Mg Tab) 20 mg PO TIDAC [facility] Last Admin: 07/12/21 08:07 Dose: 20 mg Documented by: Lisinopril (Lisinopril 20 Mg Tab) 20 mg PO DAILY [facility] Last Admin: 07/11/21 08:57 Dose: 20 mg Documented by: Lorazepam (Lorazepam 2 Mg/Ml Sdv) 0.5 mg IVPUSH Q4H PRN PRN Reason: Nausea/Vomiting Magnesium Hydroxide (Magnesium Hydroxide 400 Mg/5 Ml Susp 30 Ml Cup) 30 ml PO Q12H PRN PRN Reason: Constipation Melatonin (Melatonin 3 Mg Tab) 9 mg PO BEDTIME PRN PRN Reason: Sleep Ondansetron HCl (Ondansetron 4 Mg/2 Ml Sdv) 4 mg IV Q6H PRN PRN Reason: Nausea/Vomiting Ondansetron HCl (Ondansetron 4 Mg Tab.Dis) 4 mg PO Q6H PRN PRN Reason: Nausea able to take PO Oxycodone HCl (Oxycodone 5 Mg Tab) 5 - 10 mg PO Q4H PRN PRN Reason: Pain Last Admin: 07/12/21 09:24 Dose: 10 mg Documented by: Senna/Docusate Sodium (Docusate Sodium/Sennosides 50-8.6 Mg Tab) 1 tab PO BID PRN PRN Reason: Constipation Discontinued Medications Hydromorphone HCl (Hydromorphone 1 Mg/Ml Syringe) 1 mg IM ONETIME ONE Stop: 07/10/21 07:26 Last Admin: 07/10/21 10:49 Dose: Not Given Documented by: Hydromorphone HCl (Hydromorphone 1 Mg/Ml Syringe) 0.5 mg IM ONETIME ONE Stop: 07/10/21 07:30 Last Admin: 07/10/21 07:40 Dose: 0.5 mg Documented by: - Exam Quality Assessment: Supplemental Oxygen General: Alert, Oriented, Cooperative, No Acute Distress Lungs: Normal Respiratory Effort, Crackles (rare right lung base) Cardiovascular: Regular Rate, Regular Rhythm Psy/Mental Status: Alert, Normal Affect - Patient Data Lab Results Last 24 hrs: Laboratory Results - last 24 hr 07/11/21 07/11/21 07/11/21 Range/Units 11:23 16:24 20:52 Sodium (140-148) mmol/L Potassium (3.6-5.2) mmol/L Chloride (100-108) mmol/L Carbon Dioxide (21-32) mmol/L Anion Gap (5.0-14.0) mmol/L BUN (7-18) mg/dL Creatinine (0.8-1.3) mg/dL Est Cr Clr Drug Dosing mL/min Estimated GFR (MDRD) (>60) Glucose (74-106) mg/dL POC Glucose 131 H 120 H 157 H (74-106) mg/dL Calcium (8.5-10.1) mg/dL 07/12/21 Range/Units 04:23 Sodium 144 (140-148) mmol/L Potassium 5.4 H (3.6-5.2) mmol/L Chloride 111 H (100-108) mmol/L Carbon Dioxide 23 (21-32) mmol/L Anion Gap 15.4 H (5.0-14.0) mmol/L BUN 86 H* (7-18) mg/dL Creatinine 4.0 H* (0.8-1.3) mg/dL Est Cr Clr Drug Dosing 13.51 mL/min Estimated GFR (MDRD) 15 L (>60) Glucose 124 H (74-106) mg/dL POC Glucose (74-106) mg/dL Calcium 8.7 (8.5-10.1) mg/dL Result Diagrams: 07/10/21 04:27 07/12/21 04:23 Sepsis Event Note - Evaluation Sepsis Screening Result: No Definite Risk - Focused Exam Vital Signs: Vital Signs Temp Pulse Pulse Resp BP BP BP 07/12/21 08:46 58 L 131/44 L 07/12/21 08:07 131/44 L 07/12/21 07:00 36.1 C 63 16 104/31 L 07/12/21 02:50 36.1 C 51 L 18 108/43 L 07/11/21 23:04 16 07/11/21 22:30 36.0 C L 77 18 113/45 L Pulse Ox 07/12/21 08:46 07/12/21 08:07 07/12/21 07:00 93 L 07/12/21 02:50 93 L 07/11/21 23:04 94 L 07/11/21 22:30 81 L - Problem List & Annotations (1) Multiple rib fractures SNOMED Code(s): 7530605 Code(s): S22.49XA - MULTIPLE FRACTURES OF RIBS, UNSP SIDE, INIT FOR CLOS FX Status: Acute Current Visit: Yes Qualifiers: Encounter type: initial encounter Fracture type: closed Laterality: right Qualified Code(s): S22.41XA - Multiple fractures of ribs, right side, initial encounter for closed fracture (2) Acute respiratory failure with hypoxia SNOMED Code(s): 96723058, 346351062 Code(s): J96.01 - ACUTE RESPIRATORY FAILURE WITH HYPOXIA Status: Acute Current Visit: Yes (3) CKD (chronic kidney disease), stage IV SNOMED Code(s): 106743804 Code(s): N18.4 - CHRONIC KIDNEY DISEASE, STAGE 4 (SEVERE) Status: Chronic Current Visit: Yes (4) DM II (diabetes mellitus, type II), controlled SNOMED Code(s): 48114035, 978327296 Code(s): E11.9 - TYPE 2 DIABETES MELLITUS WITHOUT COMPLICATIONS Status: Chronic Current Visit: Yes Qualifiers: Diabetes mellitus roasterman insulin use: without roasterman use Diabetes mellitus complication status: with neurologic complications Diabetes mellitus complication detail: with polyneuropathy Qualified Code(s): E11.42 - Type 2 diabetes mellitus with diabetic polyneuropathy (5) Atrial fibrillation SNOMED Code(s): 93724977 Code(s): I48.91 - UNSPECIFIED ATRIAL FIBRILLATION Status: Chronic Current Visit: Yes Qualifiers: Atrial fibrillation type: paroxysmal Qualified Code(s): I48.0 - Paroxysmal atrial fibrillation - Problem List Review Problem List Initiated/Reviewed/Updated: Yes - My Orders Last 24 Hours: My Active Orders 07/11/21 09:00 DULoxetine [Cymbalta] 60 mg PO DAILY Docusate Sodium [Colace] 100 mg PO DAILY allopurinoL [Zyloprim] 100 mg PO DAILY lisinopriL [Prinivil] 20 mg PO DAILY 07/12/21 09:39 oxyCODONE 5 mg PO Q4H PRN 07/12/21 11:30 GLUCOSE POC LAB TO COLLECT JPM [POC] QIDACANDBED 07/12/21 16:30 GLUCOSE POC LAB TO COLLECT JPM [POC] QIDACANDBED 07/12/21 21:00 GLUCOSE POC LAB TO COLLECT JPM [POC] QIDACANDBED 07/13/21 07:30 GLUCOSE POC LAB TO COLLECT JPM [POC] QIDACANDBED 07/13/21 11:30 GLUCOSE POC LAB TO COLLECT JPM [POC] QIDACANDBED 07/13/21 16:30 GLUCOSE POC LAB TO COLLECT JPM [POC] QIDACANDBED 07/13/21 21:00 GLUCOSE POC LAB TO COLLECT JPM [POC] QIDACANDBED 07/14/21 07:30 GLUCOSE POC LAB TO COLLECT JPM [POC] QIDACANDBED 07/14/21 11:30 GLUCOSE POC LAB TO COLLECT JPM [POC] QIDACANDBED 07/14/21 16:30 GLUCOSE POC LAB TO COLLECT JPM [POC] QIDACANDBED 07/14/21 21:00 GLUCOSE POC LAB TO COLLECT JPM [POC] QIDACANDBED 07/15/21 07:30 GLUCOSE POC LAB TO COLLECT JPM [POC] QIDACANDBED 07/15/21 11:30 GLUCOSE POC LAB TO COLLECT JPM [POC] QIDACANDBED 07/15/21 16:30 GLUCOSE POC LAB TO COLLECT JPM [POC] QIDACANDBED - Plan Plan:: ASSESSMENT AND PLAN - Multiple right-sided rib fractures-complicated by acute respiratory failure with hypoxia secondary to pain. Pain steadily improving. Intermittent requirement for supplemental oxygen. Moving better again today. -Pain control with scheduled acetaminophen and as needed oxycodone -Consider low-dose muscle relaxer -Physical therapy -Supplement oxygen as needed, wean as able Stage IV chronic kidney disease-creatinine stable. Type 2 diabetes mellitus-controlled with diet at this time. He is not currently on any antidiabetic medication. -Low-dose sliding scale insulin Paroxysmal atrial fibrillation-chronically anticoagulated. -Continue rate control and anticoagulation Maintenance issues - -DVT prophylaxis-apixaban -GI prophylaxis-H2 darline -Nutrition-diabetic diet Disposition -I anticipate discharge home after the hospital stay, hopefully tomorrow if we have additional improvement overnight. is currently working on additional equipment to have their house ready for discharge. Primary care physician -Dr. Jewel Brush M.D.
[2021-07-12] MEDS: Famotidine 20 MG Tab PO SCH (20:51)
[2021-07-12] MEDS: atorvaSTATin 20 MG Tab PO SCH (20:51)
[2021-07-13] MEDS: Carvedilol 12.5 MG Tab PO SCH (08:51)
[2021-07-13] MEDS: Docusate Sodium 100 MG Cap PO SCH (08:51)
[2021-07-13] MEDS: DULoxetine 30 MG Cap PO SCH (08:51)
[2021-07-13] MEDS: Acetaminophen 500 MG Tab PO SCH (08:51)
[2021-07-13] MEDS: Apixaban 5 MG Tab PO SCH (08:52)
[2021-07-13] MEDS: Allopurinol 100 MG Tab PO SCH (08:52)
[2021-07-13] MEDS: Gabapentin 400 MG Cap PO SCH (08:53)
--- NOTE | 2021-07-13 11:30 | PCM.DCSUM1 ---
Discharge Summary - Hospital Course Brief History: 81-year-old male with stage IV chronic kidney disease, essential hypertension, chronic atrial fibrillation with systemic anticoagulation who presented with right posterior chest pain after falling at home. He was admitted for management of multiple right-sided rib fractures with acute respiratory failure with hypoxia. Diagnosis: Stroke: No - Discharge Data Discharge Date: 07/13/21 Discharge Disposition: Home, Self-Care 01 Condition: Fair - Referral to Home Health Primary Care Physician: Jewel Anderson MD - Discharge Diagnosis/Problem(s) (1) Multiple rib fractures SNOMED Code(s): 5203928 ICD Code: S22.49XA - MULTIPLE FRACTURES OF RIBS, UNSP SIDE, INIT FOR CLOS FX Status: Acute Qualifiers: Encounter type: initial encounter Fracture type: closed Laterality: right Qualified Code(s): S22.41XA - Multiple fractures of ribs, right side, initial encounter for closed fracture (2) Acute respiratory failure with hypoxia SNOMED Code(s): 67195433, 475522307 ICD Code: J96.01 - ACUTE RESPIRATORY FAILURE WITH HYPOXIA Status: Acute (3) CKD (chronic kidney disease), stage IV SNOMED Code(s): 684632093 ICD Code: N18.4 - CHRONIC KIDNEY DISEASE, STAGE 4 (SEVERE) Status: Chronic (4) DM II (diabetes mellitus, type II), controlled SNOMED Code(s): 53875699, 607926005 ICD Code: E11.9 - TYPE 2 DIABETES MELLITUS WITHOUT COMPLICATIONS Status: Chronic Qualifiers: Diabetes mellitus ocean transportation intermediary insulin use: without snf use Diabetes mellitus complication status: with neurologic complications Diabetes mellitus complication detail: with polyneuropathy Qualified Code(s): E11.42 - Type 2 diabetes mellitus with diabetic polyneuropathy (5) Atrial fibrillation SNOMED Code(s): 46751442 ICD Code: I48.91 - UNSPECIFIED ATRIAL FIBRILLATION Status: Chronic Qualifiers: Atrial fibrillation type: paroxysmal Qualified Code(s): I48.0 - Paroxysmal atrial fibrillation - Patient Summary/Data Consults: Consultations 07/10/21 09:37 OT Evaluation and Treatment [CONS] Routine Please Evaluate and Treat. OT Reason for Consult: ADL's This query below is only for informational purposes and is not editable. PT Evaluation and Treatment [CONS] Routine Please Evaluate and Treat. PT Reason for Consult: Strengthening This query below is only for informational purposes and is not editable. Hospital Course: Malcolm presented to the emergency room with right posterior chest pain after tripping and falling at home. Work-up in the emergency room revealed evidence for fractures of the right posterior ribs from 4 through 9. He had significant pain and difficulty with any sort of movement or ambulation. He was admitted for pain control. Baseline laboratory studies revealed significant elevation of creatinine but near his baseline with severe stage IV disease. At the time of admission he was quite somnolent but had been up all night and had received sedating pain medications. As the day went on his mental status improved. Over the first 24 hours there were no acute issues. His vital signs were stable. Symptomatically his pain had improved some. We continued to provide pain control with scheduled acetaminophen and as needed oxycodone. It was noted that the oxycodone made him a little bit sleepy so we did reduce the dose. Over the next 24 hours he had additional improvement in strength and ability to ambulate. His was able to secure adequate equipment for the home situation. The patient feels like he is moving well enough to be safe at home at this time. He has not had any pain medication beyond acetaminophen since yesterday morning. His stage IV kidney disease has remained stable. He feels well enough to go home and I believe he is safe with the equipment that has been acquired. Pain control will be with the scheduled acetaminophen and as needed oxycodone at 2.5 mg per dose. He will follow up with his primary care in 1 to 2 weeks unless symptoms do not continue to improve. He did require oxygen for a while during the hospital stay but we have been able to wean him off as of the time of discharge. He will be using his incentive spirometer to help improve lung function and minimize the risk of pneumonia. - Patient Instructions Diet: Regular Diet as Tolerated Activity: As Tolerated, No Strenuous Activities Showering/Bathing: May Shower Notify Provider of: Fever, Increased Pain Other/Special Instructions: 1. You were in the hospital for pain management after a fall resulted in multiple right-sided rib fractures. Your condition has been improving with symptomatic management provided here in the hospital. Initially you did require oxygen but you no longer require this. To help continue to manage her pain I recommend that you take acetaminophen 1000 mg 3 times daily. Once your pain has improved you can start to reduce and eventually discontinue this medication. If you have breakthrough pain or planned physical activities with increased pain expected you may use oxycodone 2.5 mg every 6 hours as needed. You may increase your activity slowly as tolerated. I would recommend avoiding strenuous activities and heavy lifting until your pain has resolved. I would anticipate approximately 4 weeks to recovery. 2. Continue your usual home medications as previously prescribed. I would recommend an apixaban (Eliquis) dose of 2.5 mg twice daily. 3. Follow-up with your primary care provider in 1 to 2 weeks unless symptoms do not continue to get better or if they get worse. - Discharge Plan *PRESCRIPTION DRUG MONITORING PROGRAM REVIEWED*: Not Applicable *COPY OF PRESCRIPTION DRUG MONITORING REPORT IN PATIENT AROLDO: Not Applicable Prescriptions/Med Rec: Apixaban [Eliquis] 2.5 mg PO BID #30 oxyCODONE 2.5 mg PO Q6H PRN #10 tab PRN Reason: Pain (Moderate 4-6) Acetaminophen [Tylenol Extra Strength] 1,000 mg PO TID #200 tablet Home Medications: Home Meds Colchicine 0.6 mg PO ASDIRECTED PRN 07/10/21 [History] Cyclobenzaprine [Flexeril] 10 mg PO ASDIRECTED PRN 07/10/21 [History] DULoxetine [Cymbalta] 60 mg PO DAILY 07/10/21 [History] Docusate Sodium 100 mg PO DAILY 07/10/21 [History] Famotidine 20 mg PO BID 07/10/21 [History] Gabapentin [Neurontin] 400 mg PO BID 07/10/21 [History] Isosorbide Dinitrate [Isordil] 20 mg PO TID 07/10/21 [History] Nitroglycerin [Nitrostat] 0.4 mg SL ASDIRECTED PRN 07/10/21 [History] allopurinoL [Zyloprim] 100 mg PO DAILY 07/10/21 [History] atorvaSTATin [Lipitor] 80 mg PO BEDTIME 07/10/21 [History] carvediloL [Carvedilol] 25 mg PO BID 07/10/21 [History] hydrALAZINE [Apresoline] 10 mg PO TID 07/10/21 [History] lisinopriL [Lisinopril] 20 mg PO DAILY 07/10/21 [History] Acetaminophen [Tylenol Extra Strength] 1,000 mg PO TID #200 tablet 07/13/21 [Rx] Apixaban [Eliquis] 2.5 mg PO BID #30 07/13/21 [Rx] oxyCODONE 2.5 mg PO Q6H PRN #10 tab 07/13/21 [Rx] Oxygen Therapy Mode: Room Air Patient Handouts: Oxycodone tablets or capsules, Rib Fracture Referrals: Jewel Anderson MD [Primary Care Provider] - 07/20/21 10:30 am ([facility]) - Discharge Summary/Plan Comment DC Time >30 min.: No Total # of Minutes for Discharge Time: 25 - Patient Data Vitals - Most Recent: Last Vital Signs Temp 36.3 C 07/13/21 07:16 Pulse 65 07/13/21 08:51 Resp 18 07/13/21 07:16 BP 124/57 L 07/13/21 08:51 Pulse Ox 93 L 07/13/21 07:16 Weight - Most Recent: 102.058 kg I&O - Last 24 hours: Intake & Output 07/12/21 07/13/21 07/13/21 22:59 06:59 14:59 Intake Total 240 400 Balance 240 400 Lab Results - Last 24 hrs: Laboratory Results - last 24 hr 07/12/21 07/12/21 07/12/21 Range/Units 07:28 11:20 16:38 POC Glucose 109 H 137 H 126 H (74-106) mg/dL 07/13/21 Range/Units 07:09 POC Glucose 104 (74-106) mg/dL Med Orders - Current: Current Medications Acetaminophen (Acetaminophen 500 Mg Tab) 1,000 mg PO TID [facility] Last Admin: 07/13/21 08:51 Dose: 1,000 mg Documented by: Allopurinol (Allopurinol 100 Mg Tab) 100 mg PO DAILY [facility] Last Admin: 07/13/21 08:52 Dose: 100 mg Documented by: Apixaban (Apixaban 5 Mg Tab) 2.5 mg PO BID [facility] Last Admin: 07/13/21 08:52 Dose: 2.5 mg Documented by: Atorvastatin Calcium (Atorvastatin 20 Mg Tab) 80 mg PO BEDTIME [facility] Last Admin: 07/12/21 20:51 Dose: 80 mg Documented by: Carvedilol (Carvedilol 12.5 Mg Tab) 25 mg PO BID [facility] Last Admin: 07/13/21 08:51 Dose: 25 mg Documented by: Docusate Sodium (Docusate Sodium 100 Mg Cap) 100 mg PO DAILY [facility] Last Admin: 07/13/21 08:51 Dose: 100 mg Documented by: Duloxetine HCl (Duloxetine 30 Mg Cap) 60 mg PO DAILY [facility] Last Admin: 07/13/21 08:51 Dose: 60 mg Documented by: Famotidine (Famotidine 20 Mg Tab) 20 mg PO BEDTIME [facility] Last Admin: 07/12/21 20:51 Dose: 20 mg Documented by: Hydralazine HCl (Hydralazine 10 Mg Tab) 10 mg PO TID [facility] Last Admin: 07/11/21 20:19 Dose: 10 mg Documented by: Isosorbide Dinitrate (Isosorbide Dinitrate 10 Mg Tab) 20 mg PO TIDAC [facility] Last Admin: 07/12/21 08:07 Dose: 20 mg Documented by: Lisinopril (Lisinopril 20 Mg Tab) 20 mg PO DAILY [facility] Last Admin: 07/11/21 08:57 Dose: 20 mg Documented by: Lorazepam (Lorazepam 2 Mg/Ml Sdv) 0.5 mg IVPUSH Q4H PRN PRN Reason: Nausea/Vomiting Magnesium Hydroxide (Magnesium Hydroxide 400 Mg/5 Ml Susp 30 Ml Cup) 30 ml PO Q12H PRN PRN Reason: Constipation Melatonin (Melatonin 3 Mg Tab) 9 mg PO BEDTIME PRN PRN Reason: Sleep Ondansetron HCl (Ondansetron 4 Mg/2 Ml Sdv) 4 mg IV Q6H PRN PRN Reason: Nausea/Vomiting Ondansetron HCl (Ondansetron 4 Mg Tab.Dis) 4 mg PO Q6H PRN PRN Reason: Nausea able to take PO Oxycodone HCl (Oxycodone 5 Mg Tab) 2.5 mg PO ONETIME ONE Stop: 07/13/21 12:01 Senna/Docusate Sodium (Docusate Sodium/Sennosides 50-8.6 Mg Tab) 1 tab PO BID PRN PRN Reason: Constipation Discontinued Medications Apixaban (Apixaban 5 Mg Tab) 5 mg PO BID [facility] Last Admin: 07/12/21 08:47 Dose: 5 mg Documented by: Gabapentin (Gabapentin 400 Mg Cap) 400 mg PO BID [facility] Last Admin: 07/13/21 08:53 Dose: 400 mg Documented by: Hydromorphone HCl (Hydromorphone 1 Mg/Ml Syringe) 1 mg IM ONETIME ONE Stop: 07/10/21 07:26 Last Admin: 07/10/21 10:49 Dose: Not Given Documented by: Hydromorphone HCl (Hydromorphone 1 Mg/Ml Syringe) 0.5 mg IM ONETIME ONE Stop: 07/10/21 07:30 Last Admin: 07/10/21 07:40 Dose: 0.5 mg Documented by: Insulin Human Lispro (Insulin Lispro 100 Unit/Ml 3 Ml Kwikpen) 0 unit SUBCUT QIDACANDBED [facility]; Protocol Last Admin: 07/12/21 11:29 Dose: Not Given Documented by: Oxycodone HCl (Oxycodone 5 Mg Tab) 5 - 10 mg PO Q4H PRN PRN Reason: Pain Last Admin: 07/12/21 09:24 Dose: 10 mg Documented by: Oxycodone HCl (Oxycodone 5 Mg Tab) 5 mg PO Q4H PRN PRN Reason: Pain
[2021-07-13] MEDS ORDERED: oxyCODONE 5 MG Tab PO ONE (12:00)
== END 2021-07-13 13:21 | disposition home or self-care (01) | DRG 183 ==
LOC: JP.ED 03:24 → JP.MS 09:57
PROVIDERS: ADMIT Internal Medicine; ATTEND Internal Medicine
DX: S22.41XA Multiple fractures of ribs, right side, initial encounter for closed fracture (principal); J96.01 Acute respiratory failure with hypoxia; I13.0 Hypertensive heart and chronic kidney disease with heart failure and stage 1 through stage 4 chronic kidney disease, or unspecified chronic kidney disease; N18.4 Chronic kidney disease, stage 4 (severe); Z79.01 Long term (current) use of anticoagulants; Z79.899 Other long term (current) drug therapy; X58.XXXA Exposure to other specified factors, initial encounter; H54.7 Unspecified visual loss; E11.42 Type 2 diabetes mellitus with diabetic polyneuropathy; I48.91 Unspecified atrial fibrillation; I50.9 Heart failure, unspecified; I48.0 Paroxysmal atrial fibrillation; Z95.5 Presence of coronary angioplasty implant and graft; W01.0XXA Fall on same level from slipping, tripping and stumbling without subsequent striking against object, initial encounter; E78.00 Pure hypercholesterolemia, unspecified; E66.9 Obesity, unspecified; Z98.49 Cataract extraction status, unspecified eye; E11.22 Type 2 diabetes mellitus with diabetic chronic kidney disease; G89.29 Other chronic pain; M19.90 Unspecified osteoarthritis, unspecified site; M54.9 Dorsalgia, unspecified; Z85.46 Personal history of malignant neoplasm of prostate; W19.XXXA Unspecified fall, initial encounter; Z95.1 Presence of aortocoronary bypass graft
CPT/HCPCS: 36415; 71250; 74176; 80053; 83690; 85025; 96372; 99285; J1170; 80048; 82947; 97110-GO; 97110-GP; 97162-GP; 97165-GO; 97530-GP; 97535-GP; A9270-GY; J1815